=== PATIENT | female | born 1960 | race Caucasian/White ===

== ENCOUNTER 2020-09-22 03:05 | Emergency (ER) | payer MEDICAID ==
[~2020-09-22] VITALS: Ht 165.1 cm; Wt 109.0 kg
[2020-09-22 03:07] VITALS: BP 128/90
[2020-09-22] MEDS ORDERED: KETOROLAC 60 MG/2 ML ONE (03:54)
[2020-09-22] MEDS ORDERED: DIAZEPAM 5 MG TABLET ONE (03:55)
[2020-09-22] MEDS ORDERED: KETOROLAC 30 MG/1 ML IM ONE (04:00)
[2020-09-22] MEDS ORDERED: DIAZEPAM 5 MG TABLET PO ONE (04:00)
--- NOTE | 2020-09-22 04:15 | NUR ---
Patient given discharge instructions and they have confirmed that they understand the instructions. Patient ambulatory with steady gait. NAD, all questions answered appropriately, denies additional needs at this time. No personal belongings left in room after discharge.
[2020-09-22] MEDS ORDERED: hydrALAzine 20 MG/ML, 1ML ONE (04:28)
== END 2020-09-22 04:18 | disposition home or self-care (01) ==
LOC: ED 04:07
DX: G89.29 Other chronic pain (principal); M25.511 Pain in right shoulder; M62.838 Other muscle spasm
CPT/HCPCS: 96372; 99283; J1885